=== PATIENT | female | born 1935 | race Two or more races ===

== ENCOUNTER 2024-07-07 06:59 | Inpatient (IN) | payer OTHER ==
[~2024-07-07] VITALS: Ht 152.4 cm; Wt 46.2 kg
[2024-07-07 07:30] VITALS: PULSE 91; RESP 16; O2SAT 95
--- NOTE | 2024-07-07 07:39 | ECG ---
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
--- NOTE | 2024-07-07 09:37 | PRN ---
Misceleneous Note Note Note Rapid screening exam performed 89-year-old female who presents to the emergency department with coffee-ground emesis for the past 2-3 days. She reports lower abdominal pain. She is unsure of blood in the stool. She is not on blood thinners, no history of GI bleed in the past. Blood pressure 137/92 General: Awake, alert and oriented. No acute distress. Skin: Skin in warm, dry and intact without rashes or lesions. HEENT: The head is normocephalic and atraumatic. Conjunctivae are clear without exudates or hemorrhage. Sclera is non-icteric. Neck: Normal range of motion. No JVD. Cardiac: Regular rate Respiratory: No signs of respiratory distress. No Stridor. Extremities: Upper and lower extremities are atraumatic in appearance without tenderness or deformity. Neurological: The patient is awake, alert and oriented to person, place, and time with normal speech. Speech is clear. There is no facial asymmetry. Plan: Labs, Imaging, PPI IV fluid Sign out to LENA Estevez MD Jul 07, 2024 09:37
[2024-07-07 10:00] LABS: Basophils # (auto) 0 10 ^3/uL (0-0.2); Basophils % (auto) 0.3 % (0.0-2.0); Eosinophils # (auto) 0 10 ^3/uL (0-0.8); Eosinophils % (auto) 0.1 % (0.0-7.0); Hematocrit 41.7 % (36.0-46.0); Hemoglobin 14.1 g/dL (12.2-16.2); Lymphocytes # (auto) 0.5 10 ^3/uL (0.4-5.4); Lymphocytes % (auto) 8.5 % (10.0-50.0); Mean Corpuscular Hemoglobin 32.9 pg (28.0-32.0); Mean Corpuscular Hgb Conc. 33.8 g/dL (32.0-36.0); Mean Corpuscular Volume 97.2 fL (80.0-100.0); Monocytes # (auto) 0.4 10 ^3/uL (0-1.3); Monocytes % (auto) 7.1 % (0.0-12.0); Neutrophils # (auto) 5.2 10 ^3/uL (1.6-8.6); Nucleated Red Blood Cells % 0.1 %; Platelet Count (auto) 333 10^3/uL (140-450); Red Blood Cells 4.29 10^6/uL (4.0-5.20); Red Cell Distribution Width 14.4 % (11.8-14.3); White Blood Cell 6.2 10^3/uL (4.4-10.8)
--- NOTE | 2024-07-07 10:15 | ED.PDOC ---
GI ASSESSMENT HPI Comments 89-year-old female brought in by EMS presents with a chief complaint of abdominal pain x onset "days" with associated diarrhea, nausea, and vomiting. Patient is a poor historian. Patient states that she has been having intermittent episodes of diarrhea and vomiting since "Sunday" but states that she is unsure of the day today and does not know exactly how long she has been experiencing the aforementioned symptoms. Patient reports that she has been having diarrhea, but does not know if it was tarry, black or bloody due to "I did not want to look at it". Patient reports that she has been having coffee ground emesis. Patient denies use of blood thinners. 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 Family History Family History: Reviewed,noncontributory to illness Social History Smoker: Non-Smoker Alcohol: Denies ETOH Use Drugs: Denies Drug Use Lives In: Home Constitutional: denies: chills, diaphoresis, fatigue, fever, malaise, sweats, weakness, others EENTM: denies: blurred vision, double vision, ear bleeding, ear discharge, ear drainage, ear pain, ear ringing, eye pain, eye redness, hearing loss, mouth pain, mouth swelling, nasal discharge, nose bleeding, nose congestion, nose pain, photophobia, tearing, throat pain, throat swelling, voice changes, others Respiratory: denies: cough, hemoptysis, orthopnea, SOB at rest, shortness of breath, SOB with excertion, stridor, wheezing, others Cardiovascular: denies: chest pain, dizzy spells, diaphoresis, Dyspnea on exertion, edema, irregular heart beat, left arm pain, lightheadedness, palpitations, PND, syncope, others Gastrointestinal: reports: abdominal pain, diarrhea, nausea, vomiting; denies: abdomen distended, blood streaked bowels, constipated, dysphagia, difficulty swallowing, hematemesis, melena, poor appetite, poor fluid intake, rectal pain, others Genitourinary: denies: abnormal vagina bleeding, burning, dyspareunia, dysuria, flank pain, frequency, hematuria, incontinence, pain, , vagina discharge, urgency, others Neurological: denies: dizziness, fainting, headache, left sided numbness, left sided weakness, numbness, paresthesia, pre-existing deficit, right sided numbness, right sided weakness, seizure, speech problems, tingling, tremors, weakness, others Musculoskeletal: denies: back pain, gout, joint pain, joint swelling, muscle pain, muscle stiffness, neck pain, others Integumetry: denies: bruises, change in color, change in hair/nails, dryness, laceration, lesions, lumps, rash, wounds, others Allergic/Immunocompromised: denies: Difficulty Healing, Frequent Infections, Hives, Itching, others Hematologic/Lymphatic: denies: anemia, blood clots, easy bleeding, easy bruising, swollen glands, others Endocrine: denies: excessive hunger, excessive sweating, excessive thirst, excessive urination, flushing, intolerance to cold, intolerance to heat, unexplained weight gain, unexplained weight loss, others Psychiatric: denies: anxiety, bipolar disorder, depression, hopeless, panic disorder, schizophrenia, sleepless, suicidal, others All Other Systems: Reviewed and Negative Physical Exam General Appearance: No Apparent Distress HEENT: Other (Pupils symmetric, dry mucous membranes, no facial asymmetry) Neck: Full Range of Motion, Normal Inspection Respiratory: Lungs Clear, No Accessory Muscle Use, No Respiratory Distress, Normal Breath Sounds Cardiovascular: No Edema, No JVD, Regular Rate/Rhythm Breast Exam: Deferred Gastrointestinal: LLQ, RLQ, Soft, Tenderness Genitalia: Deferred Pelvic: Deferred Rectal: Deferred Extremities: Normal inspection, Normal range of motion, Non-tender, No pedal edema Neurologic: Alert (Oriented x2), Normal Affect, Normal Mood, Other (Moves all extremities. Follows commands. No gross focal deficit.) Cerebellar Function: NOT DONE Reflexes: NOT DONE Skin: Dry, Normal Color, Warm Lymphatic: NOT DONE Was a procedure done? Was a procedure done?: No GI differential Dx Differential Diagnosis: Diverticular disease, Gastroenteritis, GI hemorrhage, Inflammatory BD, Ischemic Bowel, UTI, Dehydration, Electrolyte Imbalance, Food Poisoning, Bacterial, Parasitic, Viral, Hypovolemia, Malnutrition, Renal Failure, Anemia X-Ray, Labs, Meds, VS Vital Signs Date Time Temp Pulse Resp B/P (MAP) Pulse Ox O2 Delivery O2 Flow Rate FiO2 07/07/24 10:00 90 21 119/59 (79) 92 07/07/24 09:00 84 19 137/72 (93) 93 07/07/24 08:18 93 07/07/24 08:00 85 15 121/71 (88) 94 07/07/24 07:30 91 16 95 Room Air* 0 21 07/07/24 07:30 98.2 91 16 136/80 (98) 95 98.2 07/07/24 07:06 97.7 110 14 142/72 (95) 97 07/07/24 07:02 101 Lab Test 07/07/24 09:40 Range/Units White Blood Count 6.2 4.4-10.8 10^3/uL Red Blood Count 4.29 4.0-5.20 10^6/uL Hemoglobin 14.1 12.2-16.2 g/dL Hematocrit 41.7 36.0-46.0 % Mean Corpuscular Volume 97.2 80.0-100.0 fL Mean Corpuscular Hemoglobin 32.9 H 28.0-32.0 pg Mean Corpuscular Hemoglobin Concent 33.8 32.0-36.0 g/dL Red Cell Distribution Width 14.4 H 11.8-14.3 % Platelet Count 333 140-450 10^3/uL Mean Platelet Volume 7.1 6.9-10.8 fL Neutrophils (%) (Auto) 84.0 H 37.0-80.0 % Lymphocytes (%) (Auto) 8.5 L 10.0-50.0 % Monocytes (%) (Auto) 7.1 0.0-12.0 % Eosinophils (%) (Auto) 0.1 0.0-7.0 % Basophils (%) (Auto) 0.3 0.0-2.0 % Neutrophils # (Auto) 5.2 1.6-8.6 10 ^3/uL Lymphocytes # (Auto) 0.5 0.4-5.4 10 ^3/uL Monocytes # (Auto) 0.4 0-1.3 10 ^3/uL Eosinophils # (Auto) 0 0-0.8 10 ^3/uL Basophils # (Auto) 0 0-0.2 10 ^3/uL Nucleated Red Blood Cells 0.1 % Prothrombin Time Pending Prothrombin Time INR Pending Activated Partial Thromboplast Time Pending Sodium Level 139 136-145 mmol/L Potassium Level 3.2 L 3.5-5.1 mmol/L Chloride Level 101 98-107 mmol/L Carbon Dioxide Level 26 20-31 mmol/L Anion Gap 12 5-15 Blood Urea Nitrogen 8 L 9-23 mg/dL Creatinine 0.65 0.550-1.02 mg/dL Glomerular Filtration Rate Calc 85 >90 mL/min BUN/Creatinine Ratio 12.3 10.0-20.0 Serum Glucose 76 74-106 mg/dL Calcium Level 9.0 8.7-10.4 mg/dL Total Bilirubin 0.3 0.2-1.0 mg/dL Aspartate Amino Transferase (AST) 35 13-40 U/L Alanine Aminotransferase (ALT) 22 7-40 U/L Alkaline Phosphatase 65 46-116 U/L Total Protein 6.6 5.7-8.2 g/dL Albumin 4.0 3.2-4.8 g/dL Current Medications Medications (Trade) Dose Ordered Sig/Jourdan Route Start Time Stop Time Status Last Admin Sodium Chloride 1,000 ml @ 1,000 mls/hr Q1H ONCE IV 07/07/24 09:30 07/07/24 10:29 DC 07/07/24 10:23 Pantoprazole Sodium (Protonix) 40 mg ONCE ONCE IV 07/07/24 09:30 07/07/24 09:31 DC 07/07/24 10:28 Ondansetron HCl (Zofran) 4 mg ONCE ONCE IV 07/07/24 10:15 07/07/24 10:16 DC 07/07/24 10:29 PROCEDURE(s): ABPLIV - CT AB PEL WITH IV CON ONLY REASON: Coffee-ground emesis, abdominal pain, ORDER NUMBER(s): [id number], ACCESSION NUMBER(s): [id number] Exam: CT CT AB PEL WITH IV CON ONLY History: Coffee-ground emesis, abdominal pain, Comparison Study: None available at time of dictation. Technique: Multidetector spiral CT of the abdomen was performed from lung bases to pubic symphysis. Axial imaging was performed with intravenous contrast following the uneventful administration of 100 ml Omnipaque 300. Coronal and sagittal multiplanar reformats were obtained from the axial data set by the technologist. Radiation Dose : 1. Abdomen/Pelvis: CTDIvol 5.1 mGy, DLP 236.7 mGy*cm. Findings: Lung Bases: Lung bases are clear. Visualized portions of the heart and pericardium are unremarkable. Liver: The liver is normal in size. No focal lesions. Gallbladder and Biliary Tree: The gallbladder is unremarkable. No intrahepatic or extrahepatic biliary ductal dilatation. Spleen: Unremarkable Pancreas: The pancreas enhances normally and there are no focal lesions. The main pancreatic duct is not dilated Adrenal Glands: Unremarkable Kidneys: Kidneys enhance symmetrically. No calculi or hydronephrosis. 10 mm cyst in the lower pole of the right kidney. GI tract: The stomach is grossly normal in appearance.. No evidence of small bowel wall thickening or abnormal dilatation to suggest bowel obstruction. Colonic diverticulosis without acute diverticulitis. Peritoneum/mesentery/retroperitoneum. No evidence of free intraperitoneal air. No ascites. No evidence of suspicious lymphadenopathy. Abdominal Wall: Unremarkable. Vasculature: Abdominal aorta and main branches are unremarkable. There are atherosclerotic calcifications in the aorta. Normal vascular enhancement. Urinary Bladder: Grossly unremarkable for degree of distention. Pelvic Organs: Unremarkable Musculoskeletal: No aggressive focal bony lesions, acute fractures or dislocation. Multilevel lumbar spondylosis. IMPRESSION: 1. No acute abdominal or pelvic findings. 2. Sigmoid diverticulosis without acute diverticulitis. X-Ray, Labs, Meds, VS Comment 89-year-old female with unknown past medical history complaining of lower abdominal pain, nausea, hematemesis and diarrhea Vitals remarkable for heart rate 110, BP 142/72 Exam remarkable for lower abdominal tenderness to palpation. No tenderness to percussion. CT abdomen and pelvis: IMPRESSION: 1. No acute abdominal or pelvic findings. 2. Sigmoid diverticulosis without acute diverticulitis. CBC unremarkable, CMP remarkable for potassium 3.2, coag panel pending, UA pending Patient treated with the following in the ED: 1 L 0.9 normal saline IV bolus, Protonix 40 mg IV, effervescent potassium 50 mEq p.o. Patient declined any pain medication in the ED. On re-evaluation, patient was resting comfortably with stable vitals. Plan is to admit the patient for GI evaluation and supportive care. Time of 1ST Reevaluation: 10:40 Reevaluation 1ST: Unchanged Patient Education/Counseling: Diagnosis, Treatment, Prognosis Family Education/Counseling: No Family Present Departure 1 Departure Time of Disposition: 11:04 Impression: Primary Impression: Abdominal pain Qualified Codes: R10.9 - Unspecified abdominal pain Additional Impressions: Hematemesis Qualified Codes: K92.0 - Hematemesis Diarrhea Qualified Codes: R19.7 - Diarrhea, unspecified Disposition: 09 ADMITTED INPATIENT Admit to: Med Surg Condition: Guarded Critical Care Note Critical Care Time?: No Stability Stability form required: No Heart Score Heart Score: Heart Score Response (Comments) Value History N/A 0 EKG N/A 0 Age N/A 0 Risk Factors N/A 0 Troponin N/A 0 Total 0 I personally scribed for JASBIR TIPTON MD ([email or web address]) on 07/07/24 at 10:15. Electronically submitted by Arnold Pickett ([email or web address]). JASBIR TIPTON MD Jul 07, 2024 10:15
[2024-07-07 10:21] LABS: Alanine Aminotransferase 22 U/L (7-40); Alkaline Phosphatase 65 U/L (46-116); Anion Gap 12 (5-15); Aspartate Aminotransferase 35 U/L (13-40); BUN/Creatinine Ratio 12.3 (10.0-20.0); Carbon Dioxide 26 mmol/L (20-31); Chloride 101 mmol/L (98-107); Glucose 76 mg/dL (74-106); Sodium 139 mmol/L (136-145)
[2024-07-07 10:22] LABS: Blood Urea Nitrogen 8 mg/dL (9-23); Potassium 3.2 mmol/L (3.5-5.1); Total Protein 6.6 g/dL (5.7-8.2)
[2024-07-07] MEDS: SODIUM CHLORIDE 0.9% 1,000 ML IV ONE (10:23)
[2024-07-07 10:27] LABS: Bilirubin, Total 0.3 mg/dL (0.2-1.0)
[2024-07-07] MEDS: PANTOPRAZOLE 40 MG/10 ML VIAL INJ IV ONE (10:28)
[2024-07-07] MEDS: ONDANSETRON HCL 4 MG/2 ML VIAL IV ONE (10:29)
--- NOTE | 2024-07-07 10:59 | DVH ---
Exam: CT CT AB PEL WITH IV CON ONLY History: Coffee-ground emesis, abdominal pain, Comparison Study: None available at time of dictation. Technique: Multidetector spiral CT of the abdomen was performed from lung bases to pubic symphysis. Axial imaging was performed with intravenous contrast following the uneventful administration of 100 ml Omnipaque 300. Coronal and sagittal multiplanar reformats were obtained from the axial data set b y the technologist. Radiation Dose : 1. Abdomen/Pelvis: CTDIvol 5.1 mGy, DLP 236.7 mGy*cm. Findings: Lung Bases: Lung bases are clear. Visualized portions of the heart and pericardium are unremarkable. Liver: The liver is normal in size. No focal lesions. Gallbladder and Biliary Tree: The gallbladder is unremarkable. No intrahepatic or extrahepatic bilia ry ductal dilatation. Spleen: Unremarkable Pancreas: The pancreas enhances normally and there are no focal lesions. The main pancreatic duct i s not dilated Adrenal Glands: Unremarkable Kidneys: Kidneys enhance symmetrically. No calculi or hydronephrosis. 10 mm cyst in the lower pole o f the right kidney. GI tract: The stomach is grossly normal in appearance.. No evidence of small bowel wall thickening or abnormal dilatation to suggest bowel obstruction. Colonic diverticulosis without acute diverticuliti s. Peritoneum/mesentery/retroperitoneum. No evidence of free intraperitoneal air. No ascites. No evidenc e of suspicious lymphadenopathy. Abdominal Wall: Unremarkable. Vasculature: Abdominal aorta and main branches are unremarkable. There are atherosclerotic calcificat ions in the aorta. Normal vascular enhancement. Urinary Bladder: Grossly unremarkable for degree of distention. Pelvic Organs: Unremarkable Musculoskeletal: No aggressive focal bony lesions, acute fractures or dislocation. Multilevel lumbar spondylosis. IMPRESSION: 1. No acute abdominal or pelvic findings. 2. Sigmoid diverticulosis without acute diverticulitis.
[2024-07-07 11:59] LABS: INR 1.03 (0.9-1.15); Partial Thromboplastin Time 29.8 SEC (24.5-34.5); Prothrombin Time 10.9 sec (9.3-11.8)
[2024-07-07 12:34] LABS: Urine Bacteria None Seen /hpf (None Seen)
[2024-07-07] MEDS: IOHEXOL 300 MG/ML 100ML BOTTLE IJ ONE (13:04)
[2024-07-07 13:06] LABS: Urine Blood Negative /uL (Negative); Urine Clarity Clear (Clear); Urine Color Light-Yellow (Yellow); Urine Protein, UAD Negative (Negative); Urine Squamous Epithelial Cell FEW /hpf (<5); Urine Urobilinogen Normal (Negative); Urine WBC 5 /hpf (0 - 5); Urine pH 6.5 (5.0-9.0)
[2024-07-07] MEDS: POTASSIUM EFFERVESENT TAB 25 MEQ PO ONE (13:37)
[2024-07-07] MEDS ORDERED: DOCUSATE SOD 100 MG CAP PO PRN (16:00)
[2024-07-07] MEDS ORDERED: ACETAMINOPHEN 325 MG TAB PO PRN (16:00)
[2024-07-07] MEDS ORDERED: ONDANSETRON HCL 4 MG/2 ML VIAL IV PRN (16:00)
[2024-07-07] MEDS ORDERED: HYDROcodone-ACET 5/325MG TAB PO PRN (16:00)
[2024-07-07] MEDS: cefTRIAXone 1GM/50ML D5W 50 ML IV ONE (16:14)
--- NOTE | 2024-07-07 17:14 | DVHHP2 ---
History of Present Illness Reason for Visit: Abdominal pain History of Present Illness Patient is a 89-year-old female with past medical history of hypertension, hyperlipidemia, GERD, and dizziness who presented to [facility] ED with complaint of abdominal pain. Patient reports symptoms progressively get worse with associated intermittent episodes diarrhea, nausea, vomiting, getting worse that prompted this visit. Patient was seen and evaluated in the ED, laboratory data shows WBC 6.2, hemoglobin 14.1, hematocrit 41.7, platelets 333, sodium 139, potassium 3.2, BUN 8, creatinine 0.65, GFR 85, glucose 76, blood pressure 141/58, heart rate 80, temperature 98.2 F, O2 saturation 93% on oxygen, urinalysis positive for urinary tract infection. Abdomen/pelvis CT revealing sigmoid diverticulosis without acute diverticulitis, no acute abdominal or pelvic findings. Patient was started on IV antibiotic regimen Rocephin, please see medication record section in the computer. On my assessment, patient denied chest pain, no headache, no dizziness, no diaphoresis, no abdominal pain, no diarrhea, nausea or vomiting at this moment, no fever, no chills. Patient was admitted for further evaluation and medical ma nagement. Past Medical History HTN, HLD, GERD, dizziness Past Surgical History Unknown Family History Reviewed, noncontributory to the management of this case. Past Social History The patient lives at home, no history of smoking, alcohol or illicit drugs abuse on file. Review of Systems Constitutional: Yes: Weakness; No: Fever, Chills, Sweats, Malaise, Other Eyes: No: Pain, Vision change, Conjunctivae inflammation, Eyelid inflammation, Other, Redness ENT: No: Ear pain, Ear discharge, Nose pain, Nose discharge, Nose congestion, Mouth pain, Mouth swelling, Throat pain, Throat swelling, Other Respiratory: No: Cough, Dry, Shortness of breath, SOB with excertion, Wheezing, Hemoptysis, Pleuritic Pain, Sputum, Wheezing, Other Cardiovascular: No: Chest Pain, Palpitations, Orthopnea, Paroxysmal Noc. Dyspnea, Edema, Lt Headedness, Other Gastrointestinal: Nausea, Vomiting, Abdominal Pain, Diarrhea; No: Constipation, Melena, Hematochezia, Other Genitourinary: No Dysuria, No Frequency, No Incontinence, No Hematuria, No Retention, No Other Musculoskeletal: No: other, neck pain, shoulder pain, arm pain, back pain, hand pain, leg pain, foot pain Skin: No: Rash, Lesions, Jaundice, Bruising, Other Neurological: No: Weakness, Numbness, Incoordination, Change in speech, Confusion, Seizures, Other Allergies: Coded Allergies: UNOBTAINABLE (Unverified , 07/07/24) Medications Current Medications Medications Dose Ordered Sig/Jourdan Route Start Time Stop Time Status Last Admin Dose Admin Ceftriaxone Sodium 50 ml @ 100 mls/hr DAILY@09 IV 07/08/24 09:00 Pantoprazole Sodium 40 mg DAILY IV 07/08/24 10:00 Hydralazine HCl 10 mg Q6HP PRN IV 07/07/24 16:00 Atorvastatin Calcium 10 mg HS PO 07/07/24 22:00 Sodium Chloride 1,000 ml @ 60 mls/hr [id number] IV 07/07/24 16:00 Acetaminophen/ Hydrocodone Bitart 1 tab Q4HP PRN PO 07/07/24 16:00 Ondansetron HCl 4 mg Q4HP PRN IV 07/07/24 16:00 Docusate Sodium 100 mg BIDPRN PRN PO 07/07/24 16:00 Acetaminophen 650 mg Q6HP PRN PO 07/07/24 16:00 Exam Vital Signs Vital Signs Date Time Temp Pulse Resp B/P (MAP) Pulse Ox O2 Delivery O2 Flow Rate FiO2 07/07/24 16:43 70 07/07/24 14:00 21 141/58 (85) 93 07/07/24 07:30 Room Air* 0 21 07/07/24 07:30 98.2 98.2 General Appearance: Alert, Oriented X3, Cooperative, No acute distress HEENT: Atraumatic, PERRLA, EOMI, Mucous membr. moist/pink Respiratory: Clear to auscultation, Normal air movement Cardiovascular: Regular rate, Normal S1, Normal S2, No murmurs Abdominal: Normal bowel sounds, Soft, No hepatospenomegaly, No masses, Other (Reports tenderness) Extremities: No clubbing, No cyanosis, No edema, Normal pulses, No tenderness/swelling Skin: No rashes, No breakdown, No significant lesion Neuro: Normal speech, Normal tone, Sensation intact, Cranial nerves 3-12 NL, Reflexes 2+, Other (Generalized weakness) Psych/Mental Status: Mental status NL, Mood NL Labs/Xrays Labs Test 1/13/25 12:20 07/07/24 09:40 Range/Units Urine Color Light-yellow Yellow Urine Clarity Clear Clear Urine pH 6.5 5.0-9.0 Urine Specific [place] 1.050 H 1.001-1.035 Urine Protein Negative Negative Urine Ketones 1+ H Negative Urine Blood Negative Negative /uL Urine Nitrite Negative Negative Urine Bilirubin Negative Negative Urine Urobilinogen Normal Negative mg/dL Urine Leukocyte Esterase 1+ Negative /uL Urine RBC 1 0 - 4 /hpf Urine WBC 5 0 - 5 /hpf Urine Squamous Epithelial Cells Few <5 /hpf Urine Bacteria None seen None Seen /hpf Urine Glucose Normal Normal mg/dL White Blood Count 6.2 4.4-10.8 10^3/uL Red Blood Count 4.29 4.0-5.20 10^6/uL Hemoglobin 14.1 12.2-16.2 g/dL Hematocrit 41.7 36.0-46.0 % Mean Corpuscular Volume 97.2 80.0-100.0 fL Mean Corpuscular Hemoglobin 32.9 H 28.0-32.0 pg Mean Corpuscular Hemoglobin Concent 33.8 32.0-36.0 g/dL Red Cell Distribution Width 14.4 H 11.8-14.3 % Platelet Count 333 140-450 10^3/uL Mean Platelet Volume 7.1 6.9-10.8 fL Neutrophils (%) (Auto) 84.0 H 37.0-80.0 % Lymphocytes (%) (Auto) 8.5 L 10.0-50.0 % Monocytes (%) (Auto) 7.1 0.0-12.0 % Eosinophils (%) (Auto) 0.1 0.0-7.0 % Basophils (%) (Auto) 0.3 0.0-2.0 % Neutrophils # (Auto) 5.2 1.6-8.6 10 ^3/uL Lymphocytes # (Auto) 0.5 0.4-5.4 10 ^3/uL Monocytes # (Auto) 0.4 0-1.3 10 ^3/uL Eosinophils # (Auto) 0 0-0.8 10 ^3/uL Basophils # (Auto) 0 0-0.2 10 ^3/uL Nucleated Red Blood Cells 0.1 % Prothrombin Time 10.9 9.3-11.8 sec Prothrombin Time INR 1.03 0.9-1.15 Activated Partial Thromboplast Time 29.8 24.5-34.5 SEC Sodium Level 139 136-145 mmol/L Potassium Level 3.2 L 3.5-5.1 mmol/L Chloride Level 101 98-107 mmol/L Carbon Dioxide Level 26 20-31 mmol/L Anion Gap 12 5-15 Blood Urea Nitrogen 8 L 9-23 mg/dL Creatinine 0.65 0.550-1.02 mg/dL Glomerular Filtration Rate Calc 85 >90 mL/min BUN/Creatinine Ratio 12.3 10.0-20.0 Serum Glucose 76 74-106 mg/dL Calcium Level 9.0 8.7-10.4 mg/dL Total Bilirubin 0.3 0.2-1.0 mg/dL Aspartate Amino Transferase (AST) 35 13-40 U/L Alanine Aminotransferase (ALT) 22 7-40 U/L Alkaline Phosphatase 65 46-116 U/L Total Protein 6.6 5.7-8.2 g/dL Albumin 4.0 3.2-4.8 g/dL PATIENT: SORAYA BOYD ACCT: [id number] UNIT: [id number] : 1935 LOC: ER ROOM / BED: / AGE / SEX: 89 / F ADM STATUS: REG ER SERVICE 5 ORDERING PHYSICIAN: LENA LOPEZ MD PROCEDURE(s): ABPLIV - CT AB PEL WITH IV CON ONLY REASON: Coffee-ground emesis, abdominal pain, ORDER NUMBER(s): [id number], ACCESSION NUMBER(s): [id number] Exam: CT CT AB PEL WITH IV CON ONLY History: Coffee-ground emesis, abdominal pain, Comparison Study: None available at time of dictation. Technique: Multidetector spiral CT of the abdomen was performed from lung bases to pubic symphysis. Axial imaging was performed with intravenous contrast following the uneventful administration of 100 ml Omnipaque 300. Coronal and sagittal multiplanar reformats were obtained from the axial data set by the technologist. Radiation Dose : 1. Abdomen/Pelvis: CTDIvol 5.1 mGy, DLP 236.7 mGy*cm. Findings: Lung Bases: Lung bases are clear. Visualized portions of the heart and pericardium are unremarkable. Liver: The liver is normal in size. No focal lesions. Gallbladder and Biliary Tree: The gallbladder is unremarkable. No intrahepatic or extrahepatic biliary ductal dilatation. Spleen: Unremarkable Pancreas: The pancreas enhances normally and there are no focal lesions. The main pancreatic duct is not dilated Adrenal Glands: Unremarkable Kidneys: Kidneys enhance symmetrically. No calculi or hydronephrosis. 10 mm cyst in the lower pole of the right kidney. GI tract: The stomach is grossly normal in appearance.. No evidence of small bowel wall thickening or abnormal dilatation to suggest bowel obstruction. Colonic diverticulosis without acute diverticulitis. Peritoneum/mesentery/retroperitoneum. No evidence of free intraperitoneal air. No ascites. No evidence of suspicious lymphadenopathy. Abdominal Wall: Unremarkable. Vasculature: Abdominal aorta and main branches are unremarkable. There are atherosclerotic calcifications in the aorta. Normal vascular enhancement. Urinary Bladder: Grossly unremarkable for degree of distention. Pelvic Organs: Unremarkable Musculoskeletal: No aggressive focal bony lesions, acute fractures or dislocation. Multilevel lumbar spondylosis. IMPRESSION: 1. No acute abdominal or pelvic findings. 2. Sigmoid diverticulosis without acute diverticulitis. Assessment/Plan Assessment/Plan Abdominal pain Hypokalemia Unspecified abdominal pain Hematemesis Diarrhea, unspecified Generalized weakness Plan 1. Admit to Med-Surg unit 2. Breathing treatment 3. Pain control management 4. Management of fluids and electrolytes 5. Consultation for hospitalist 6. Diagnostic tests abdomen/pelvis CT 7. DVT prophylaxis-on SCDs 8. Repeat labs CBC, CMP in a.m. 9. Continue with current medical management 10. Treatment plan discussed with patient and RN. Patient verbalized understanding. Plan discussed with: Patient, Other (RN) My Orders Orders - GAUTAM TOVAR DNP Procedure Category Date Status Time Urine Bacterial NAHEED 07/07/24 Logged Culture 15:48 Ceftriaxone 1gm/50ml PHA 07/08/24 In Process D5w (Rocephin) 09:00 Pantoprazole PHA 07/08/24 In Process (Protonix) 10:00 Hydralazine Injection PHA 07/07/24 In Process (Apresoline Inject 16:00 Atorvastatin (Lipitor) PHA 07/07/24 In Process 22:00 Allergies ANANYA 07/07/24 In Process 15:48 Code Status CODE 07/07/24 Transmitted 15:48 Sodium Chloride 0.9% PHA 07/07/24 In Process 16:00 Oxygen Per Hour RT 07/07/24 Transmitted 15:48 Hydrocodone-Acet PHA 07/07/24 In Process 5/325mg Tab ([place] 16:00 Ondansetron Hcl PHA 07/07/24 In Process (Zofran) 16:00 Docusate Sodium PHA 07/07/24 In Process Capsule (Colace 16:00 Fall Risk Precautions ANANYA 07/07/[address] 15:48 Complete Blood Count LAB 07/08/24 Verified 04:00 Comprehensive LAB 07/08/24 Verified Metabolic Panel 04:00 Cardiac DIET 07/07/24 Transmitted Diet-2gna,Lofat,Lochol Dinner Condition: Serious ANANYA 07/07/24 In Process 15:48 Acetaminophen Tablet PHA 07/07/24 In Process (Tylenol Tablet) 16:00 Sequential ANANYA 07/07/24 In Process Compression Device Problem List: (1) Abdominal pain (2) Diarrhea, unspecified (3) Hematemesis (4) Hypokalemia (5) Unspecified abdominal pain (6) Generalized weakness Date of Service: Jul 07, 2024 Billing Provider: GAUTAM TOVAR DNP Common Visit Codes: [id number] INP/OBS CARE (HIGH) GAUTAM TOVAR DNP Jul 07, 2024 17:14
[2024-07-07] MEDS ORDERED: MORPHINE SULFATE INJ 2 MG/ml SYRG IV PRN (17:15)
[2024-07-07] MEDS ORDERED: NITROGLYCERIN 0.4 MG SL TAB SL PRN (17:15)
[2024-07-07] MEDS: SODIUM CHLORIDE 0.9% 1,000 ML IV SCH (17:15)
[2024-07-07 18:00] VITALS: PULSE 80; RESP 11; O2SAT 91
[2024-07-07 19:43] VITALS: PULSE 76; RESP 11; O2SAT 91
[2024-07-07 21:45] VITALS: BP 148/85; PULSE 79; RESP 18; TEMP 98; O2SAT 90
[2024-07-07 21:58] VITALS: BP 148/85; PULSE 79; RESP 18; TEMP 98; O2SAT 90
[2024-07-07] MEDS ORDERED: MECL-126 PO (22:03)
[2024-07-07] MEDS ORDERED: MELO7.5T7 PO (22:03)
[2024-07-07] MEDS ORDERED: AMLO1TAB21 PO (22:03)
[2024-07-07] MEDS ORDERED: FLUT1AER12 INH (22:03)
[2024-07-07] MEDS ORDERED: TRAZ-227 PO (22:03)
[2024-07-07] MEDS ORDERED: ATOR10TA52 PO (22:03)
[2024-07-07] MEDS: ATORVASTATIN 20 MG TAB PO SCH (22:35)
[2024-07-08] VITALS (7 sets, daily range): BP systolic 106–156; BP diastolic 51–85; PULSE 54–80; RESP 15–18; TEMP 97.5–98.6; O2SAT 90–95
[2024-07-08 06:30] LABS: Basophils # (auto) 0 10 ^3/uL (0-0.2); Basophils % (auto) 0.4 % (0.0-2.0); Eosinophils # (auto) 0 10 ^3/uL (0-0.8); Eosinophils % (auto) 0.4 % (0.0-7.0); Hematocrit 41.1 % (36.0-46.0); Hemoglobin 14.2 g/dL (12.2-16.2); Lymphocytes # (auto) 1.1 10 ^3/uL (0.4-5.4); Lymphocytes % (auto) 20.1 % (10.0-50.0); Mean Corpuscular Hemoglobin 33.3 pg (28.0-32.0); Mean Corpuscular Hgb Conc. 34.5 g/dL (32.0-36.0); Mean Corpuscular Volume 96.5 fL (80.0-100.0); Monocytes # (auto) 0.4 10 ^3/uL (0-1.3); Monocytes % (auto) 8.3 % (0.0-12.0); Neutrophils # (auto) 3.7 10 ^3/uL (1.6-8.6); Neutrophils % (auto) 70.8 % (37.0-80.0); Nucleated Red Blood Cells % 0.2 %; Platelet Count (auto) 329 10^3/uL (140-450); Red Blood Cells 4.26 10^6/uL (4.0-5.20); Red Cell Distribution Width 14.2 % (11.8-14.3); White Blood Cell 5.2 10^3/uL (4.4-10.8)
[2024-07-08 07:04] LABS: Alanine Aminotransferase 17 U/L (7-40); Alkaline Phosphatase 64 U/L (46-116); Anion Gap 11 (5-15); Aspartate Aminotransferase 25 U/L (13-40); BUN/Creatinine Ratio 10.3 (10.0-20.0); Calcium 8.8 mg/dL (8.7-10.4); Carbon Dioxide 27 mmol/L (20-31); Chloride 99 mmol/L (98-107); Sodium 137 mmol/L (136-145)
[2024-07-08 07:05] LABS: Bilirubin, Total 0.3 mg/dL (0.2-1.0); Total Protein 6.5 g/dL (5.7-8.2)
[2024-07-08 07:15] LABS: Blood Urea Nitrogen 6 mg/dL (9-23); Glucose 64 mg/dL (74-106); Potassium 3.2 mmol/L (3.5-5.1)
[2024-07-08] MEDS: cefTRIAXone 1GM/50ML D5W 50 ML IV SCH (09:38)
[2024-07-08] MEDS: PANTOPRAZOLE 40 MG/10 ML VIAL INJ IV SCH ×2 (09:39→22:20)
--- NOTE | 2024-07-08 09:54 | DVHPN2 ---
Progress Note Date Seen: Jul 08, 2024 Medical Necessity Reason Pt with a Central, PICC or Fol: No Subjective Patient reports: No new complaints Review of Systems: HEENT:Normal, CVS:Normal, RESPIRATORY:Normal, GI:Normal, :Normal, MSK:Normal, NEURO:Normal Objective vital signs Vital Sign Date Time Temp Pulse Resp B/P (MAP) Pulse Ox O2 Delivery O2 Flow Rate FiO2 07/08/24 05:00 98.4 80 17 132/72 (92) 92 98.4 07/07/24 21:58 Room Air* 0 21 Total Intake and Output 07/07/24 07/07/24 07/08/24 15:00 23:00 07:00 Intake Total 1000 ml 290 ml 350 ml Balance 1000 ml 290 ml 350 ml medications Current Medications Medications Dose Ordered Sig/Jourdan Route Start Time Stop Time Status Last Admin Dose Admin Ceftriaxone Sodium 50 ml @ 100 mls/hr DAILY@09 IV 07/08/24 09:00 07/08/24 09:38 100 MLS/HR Pantoprazole Sodium 40 mg DAILY IV 07/08/24 10:00 07/08/24 09:39 40 MG Hydralazine HCl 10 mg Q6HP PRN IV 07/07/24 16:00 Atorvastatin Calcium 10 mg HS PO 07/07/24 22:00 07/07/24 22:35 10 MG Sodium Chloride 1,000 ml @ 60 mls/hr [id number] IV 07/07/24 16:00 07/07/24 17:15 60 MLS/HR Acetaminophen/ Hydrocodone Bitart 1 tab Q4HP PRN PO 07/07/24 16:00 Ondansetron HCl 4 mg Q4HP PRN IV 07/07/24 16:00 Docusate Sodium 100 mg BIDPRN PRN PO 07/07/24 16:00 Acetaminophen 650 mg Q6HP PRN PO 07/07/24 16:00 Nitroglycerin 0.4 mg Q5MINP PRN SL 07/07/24 17:15 Morphine Sulfate 2 mg Q30M PRN IV 07/07/24 17:15 Examination: GENERAL:Normal, HEENT:Normal, NECK:Normal, LUNGS:Normal, CVS:Normal, ABDOMEN:Normal, MSK:Normal, SKIN:Normal, NEURO:Normal, :Normal laboratory and microbiology Laboratory Tests 07/08/24 05:45 Test 1/14/25 05:45 Range/Units Serum Glucose 64 L 74-106 mg/dL Problem List/Assessment/Plan Problem List/Assessment/Plan #1 abd pain with coffee ground emesis: gi eval, ppi #2 htn #3 hyperlipidemia #4 gerd advance care planning- full code- time spent 19 mins Plan discussed with: Patient Date of Service: Jul 08, 2024 Billing Provider: BELÉN WALSH MD Common Visit Codes: [id number] INP/OBS CARE(HIGH) Secondary Visit Codes: [id number] CARE PLAN 30 MINUTES BELÉN WALSH MD Jul 08, 2024 09:54
[2024-07-08] MEDS: POTASSIUM CHLORIDE 20 MEQ, LIDOCAINE 1% (LOCAL ANESTH.) 2 ML in SODIUM CHL 0.9% 100 ML IV ONE (12:23)
--- NOTE | 2024-07-08 15:54 | DVHCONRES ---
Date Seen: Jul 08, 2024 Resident Creating Document: ADOLPH FUCHS RESIDENT Referring Physician Dr. Isidro Sifuentes Reason for Consultation GI bleed History of Present Illness 89-year-old female patient with past medical history of hypertension, hyperlipidemia, GERD, dizziness who was brought to the emergency department with a chief complaint of coffee-ground emesis for the past 24 hours before admission associated with abdominal pain and diarrhea for the past [address] abdomen showed sigmoid diverticulosis without the colitis and urinalysis was positive for urinary tract infection for which the patient was started on IV antibiotics Rocephin. Patient was evaluated at bedside, she denies nausea or vomiting episodes today (07/08/2024) she denies being using NSAIDs or aspirin at home she just uses Tylenol for pain control. The last colonoscopy was more than 30 years ago and she refuses to get a new one again. Patient is hemodynamically stable, we discussed the possibility to proceed with the endoscopic tomorrow at 1:00 p.m., patient agreed with the plan. We are going to advance the diet, clear liquid diet on breakfast and NPO since then until EGD. Past Medical History Hypertension Hyperlipidemia GERD Dizziness Diverticulosis Family History: FH: SD (myocardial infarction) G8 FATHER FH: breast cancer G8 MOTHER Allergies: Coded Allergies: UNOBTAINABLE (Unverified , 07/07/24) Home Meds Reported Medications Trazodone Hcl (Trazodone Hcl) 50 Mg Tab, 1 TAB PO for insomnia 07/07/24 Fluticasone-Salmeterol (Fluticasone Propionate/SA 250-50 Mcg/Dose) 1 Aer Aer, 1 PUFF INH BID 07/07/24 Meloxicam (Meloxicam) 7.5 Mg Tab, 1 TAB PO DAILY 07/07/24 Meclizine HCl (Meclizine Hydrochloride) 25 Mg Tab, 1 TAB PO BIDPRN 07/07/24 Amlodipine Besylate (Amlodipine Besylate) 2.5 Mg Tab, 1 TAB PO DAILY 07/07/24 Atorvastatin Calcium (ATORVASTATIN CALCIUM) 10 Mg Tab, 1 TAB PO DAILY 07/07/24 Current Medications Current Medications Medications (Trade) Dose Ordered Sig/Jourdan Route PRN Reason Start Time Stop Time Status Last Admin Ceftriaxone Sodium 50 ml @ 100 mls/hr DAILY@09 IV 07/08/24 09:00 07/08/24 09:38 Pantoprazole Sodium (Protonix) 40 mg DAILY IV 07/08/24 10:00 07/08/24 14:57 DC 07/08/24 09:39 Hydralazine HCl (Apresoline Injection) 10 mg Q6HP PRN IV SBP>150 07/07/24 16:00 Atorvastatin Calcium (Lipitor) 10 mg HS PO 07/07/24 22:00 07/08/24 09:53 DC 07/07/24 22:35 Sodium Chloride 1,000 ml @ 60 mls/hr [id number] IV 07/07/24 16:00 07/07/24 17:15 Acetaminophen/ Hydrocodone Bitart ([place] 5/325MG Tab) 1 tab Q4HP PRN PO MODERATE PAIN (4-6 PAIN SCALE) 07/07/24 16:00 Ondansetron HCl (Zofran) 4 mg Q4HP PRN IV NAUSEA / VOMITING 07/07/24 16:00 Docusate Sodium (Colace Capsule) 100 mg BIDPRN PRN PO FOR CONSTIPATION 07/07/24 16:00 Acetaminophen (Tylenol Tablet) 650 mg Q6HP PRN PO PAIN SCALE 1-3 OR TEMP>100.4 07/07/24 16:00 Nitroglycerin (Ntrostat Sublingual) 0.4 mg Q5MINP PRN SL FOR CHEST PAIN 07/07/24 17:15 Morphine Sulfate 2 mg Q30M PRN IV FOR CHEST PAIN 07/07/24 17:15 Pantoprazole Sodium (Protonix) 40 mg BID IV 07/08/24 22:00 Sucralfate (Carafate Susp) 1 gm BID@0600,2200 PO 07/08/24 22:00 Review of Systems Constitutional: No: Fever, Chills, Sweats, Weakness, Malaise, Other Eyes: No: Pain, Vision change, Conjunctivae inflammation, Eyelid inflammation, Other, Redness ENT: No: Ear pain, Ear discharge, Nose pain, Nose discharge, Nose congestion, Mouth pain, Mouth swelling, Throat pain, Throat swelling, Other Respiratory: No Wheezing, Hemoptysis, Pleuritic Pain, Sputum, Wheezing, Other Cardiovascular: No: Chest Pain, Palpitations, Orthopnea, Paroxysmal Noc. Dyspnea, Edema, Lt Headedness, Other Gastrointestinal: Yes: Mild abdominal pain No: Nausea, Vomiting, Diarrhea, Constipation, Melena, Hematochezia, Other Musculoskeletal: No: other, neck pain, shoulder pain, arm pain, back pain, hand pain, leg pain, foot pain Neurological:; yes: Weakness No:Numbness, Incoordination, Change in speech, Confusion, Seizures Vital Signs Vital Signs Date Time Temp Pulse Resp B/P (MAP) Pulse Ox O2 Delivery O2 Flow Rate FiO2 07/08/24 08:30 97.9 60 17 147/83 (104) 94 97.9 07/08/24 08:10 Room Air* 0 21 Physical Exam Examination General Appearance: Alert, Oriented X3, Cooperative, No acute distress Respiratory: Clear to auscultation, Normal air movement Cardiovascular: Regular rate, Normal S1, Normal S2 Abdominal: Normal bowel sounds Extremities: No cyanosis, No edema, Normal pulses, No tenderness/swelling Skin: No rashes, No breakdown Neuro: Normal speech, Strength at 5/5 X4 ext, Normal tone, Sensation intact Psych/Mental Status: Mental status NL, Mood NL Labs/Diagnostic Data Labs Test 07/08/24 05:45 07/07/24 12:20 07/07/24 09:40 Range/Units White Blood Count 5.2 4.4-10.8 10^3/uL Red Blood Count 4.26 4.0-5.20 10^6/uL Hemoglobin 14.2 12.2-16.2 g/dL Hematocrit 41.1 36.0-46.0 % Mean Corpuscular Volume 96.5 80.0-100.0 fL Mean Corpuscular Hemoglobin 33.3 H 28.0-32.0 pg Mean Corpuscular Hemoglobin Concent 34.5 32.0-36.0 g/dL Red Cell Distribution Width 14.2 11.8-14.3 % Platelet Count 329 140-450 10^3/uL Mean Platelet Volume 7.1 6.9-10.8 fL Neutrophils (%) (Auto) 70.8 37.0-80.0 % Lymphocytes (%) (Auto) 20.1 10.0-50.0 % Monocytes (%) (Auto) 8.3 0.0-12.0 % Eosinophils (%) (Auto) 0.4 0.0-7.0 % Basophils (%) (Auto) 0.4 0.0-2.0 % Neutrophils # (Auto) 3.7 1.6-8.6 10 ^3/uL Lymphocytes # (Auto) 1.1 0.4-5.4 10 ^3/uL Monocytes # (Auto) 0.4 0-1.3 10 ^3/uL Eosinophils # (Auto) 0 0-0.8 10 ^3/uL Basophils # (Auto) 0 0-0.2 10 ^3/uL Nucleated Red Blood Cells 0.2 % Sodium Level 137 136-145 mmol/L Potassium Level 3.2 L 3.5-5.1 mmol/L Chloride Level 99 98-107 mmol/L Carbon Dioxide Level 27 20-31 mmol/L Anion Gap 11 5-15 Blood Urea Nitrogen 6 L 9-23 mg/dL Creatinine 0.58 0.550-1.02 mg/dL Glomerular Filtration Rate Calc 88 >90 mL/min BUN/Creatinine Ratio 10.3 10.0-20.0 Serum Glucose 64 L 74-106 mg/dL Calcium Level 8.8 8.7-10.4 mg/dL Total Bilirubin 0.3 0.2-1.0 mg/dL Aspartate Amino Transferase (AST) 25 13-40 U/L Alanine Aminotransferase (ALT) 17 7-40 U/L Alkaline Phosphatase 64 46-116 U/L Total Protein 6.5 5.7-8.2 g/dL Albumin 4.0 3.2-4.8 g/dL Urine Color Light-yellow Yellow Urine Clarity Clear Clear Urine pH 6.5 5.0-9.0 Urine Specific [place] 1.050 H 1.001-1.035 Urine Protein Negative Negative Urine Ketones 1+ H Negative Urine Blood Negative Negative /uL Urine Nitrite Negative Negative Urine Bilirubin Negative Negative Urine Urobilinogen Normal Negative mg/dL Urine Leukocyte Esterase 1+ Negative /uL Urine RBC 1 0 - 4 /hpf Urine WBC 5 0 - 5 /hpf Urine Squamous Epithelial Cells Few <5 /hpf Urine Bacteria None seen None Seen /hpf Urine Glucose Normal Normal mg/dL Prothrombin Time 10.9 9.3-11.8 sec Prothrombin Time INR 1.03 0.9-1.15 Activated Partial Thromboplast Time 29.8 24.5-34.5 SEC Assessment Upper GI bleed Sigmoid diverticulosis without signs of diverticulitis Hypertension Hyperlipidemia GERD Hypokalemia Plan/Recommendation EGD scheduled for tomorrow at 1:00 p.m. to evaluate for source of bleeding. Continue Protonix 40 mg IV b.i.d. for gastric protection Liquid Carafate b.i.d. NPO after breakfast Replace potassium as needed Plan discussed with: Patient, Son JOHN DeanaADOLPH RESIDENT Jul 08, 2024 15:54
[2024-07-08] MEDS: hydrALAZINE HCL 20 MG/ML VL IV PRN (17:12)
[2024-07-08] MEDS: SUCRALFATE 1 GM/10 ML ORAL SUSP PO SCH (22:19)
[2024-07-09 01:00] VITALS: BP 152/78; PULSE 60; RESP 18; TEMP 97.5; O2SAT 93
[2024-07-09 05:00] VITALS: BP 155/68; PULSE 79; RESP 18; TEMP 97.7; O2SAT 94
[2024-07-09] MEDS ORDERED: fentaNYL CITRATE 100 MCG/2 ML VL ONE (07:50)
[2024-07-09] MEDS ORDERED: MIDAZOLAM HCL 2MG/2ML 2ml VIAL (1mg/ml) ONE (07:50)
[2024-07-09] MEDS ORDERED: PROPOFOL 10 MG/ML 20 ML IV ONE (07:51)
[2024-07-09] MEDS ORDERED: DexAMETHasone SOD PHOS 10MG/1ML VIAL INJ ONE (07:51)
[2024-07-09] MEDS ORDERED: GLYCOPYRROLATE 0.2 MG/ML 1ML VIAL ONE (07:51)
[2024-07-09] MEDS ORDERED: ONDANSETRON HCL 4 MG/2 ML VIAL ONE (07:51)
[2024-07-09 08:07] VITALS: TEMP 97.3; O2SAT 100
[2024-07-09 08:10] VITALS: PULSE 96; O2SAT 92
--- NOTE | 2024-07-09 08:12 | DVHOP2 ---
Operative Report DATE OF OPERATION: 07/09/24 PROCEDURE: Upper Endoscopy with biopsy. PREOPERATIVE INDICATION: The patient is a 89 -year-old female undergoing endoscopy for history of coffee-ground emesis POSTOPERATIVE DIAGNOSES: 1. 2 cm sliding-type hiatal hernia with slightly irregular squamocolumnar junction and grade a erosive esophagitis 2. Mild gastroduodenitis otherwise normal examination up to the 2nd and 3rd part of the duodenal with no active bleeding PROCEDURE PERFORMED BY: Cecilia Davis GI NURSE: Roman SCOPE: Olympus videoendoscope. ASA CLASS: 2. PREOPERATIVE MEDICATIONS: Mac sedation, Dr. Alfredo PROCEDURE IN DETAIL: After obtaining an informed consent, the patient was placed on left lateral decubitus position. The patient was then sedated with the above medications. A bite block was placed between her teeth. The endoscope was then passed through the oropharynx, into the esophagus, and through the stomach and pylorus up to the second and third part of the duodenum. The endoscope was then withdrawn. The 2nd and 3rd part of the duodenal were normal. Duodenal bulb showed mild duodenitis. Duodenal biopsies were obtained. The pre-pyloric area and antrum showed mild antral gastritis. Gastric biopsies were obtained. There was no fresh or old blood in the upper GI tract. On retroflexion and straight on view the fundus cardia and angularis were normal. The endoscope was then withdrawn into the distal esophagus. Patient had a 2 cm sliding-type hiatal hernia with irregular squamocolumnar junction and grade a erosive esophagitis of the GE junction GE junction biopsies were obtained The remaining distal and proximal esophagus and oropharynx were unremarkable except for tertiary contractions The patient tolerated the procedure well without difficulty. COMPLICATIONS : None SPECIMENS: Duodenal biopsies Gastric biopsies GE junction biopsies DISPOSITION: Transfer back to the floor Stable PLAN: 1. Await for biopsy result 2. Will place pt on Protonix 40 mg p.o. q.a.m. 3. Carafate 1 g p.o. q.h.s. 4. Resume GI soft diet advance as tolerated 5. Avoid aspirin NSAIDs smoking alcohol 6. Patient is stable for discharge from a GI point of view, she was encouraged to follow up in my office as an outpatient CECILIA DAVIS MD Jul 09, 2024 08:12
[2024-07-09 08:37] VITALS: PULSE 88; RESP 15; O2SAT 96
[2024-07-09] MEDS ORDERED: POTASSIUM CHL 20MEQ/100ML 100 ML IV ONE (09:15)
[2024-07-09] MEDS ORDERED: SUCR1TAB31 OR (09:19)
[2024-07-09] MEDS ORDERED: GENT0.3S10 EACHEYE (09:19)
[2024-07-09] MEDS ORDERED: PANT40TA2 PO (09:19)
--- NOTE | 2024-07-09 09:25 | DVHDS2 ---
Discharge Summary Date of Admission Jul 07, 2024 at 17:13 Date of Discharge: Jul 09, 2024 Labs/Diagnostic Data: Laboratory Results Test 07/08/24 05:45 07/07/24 12:20 07/07/24 09:40 White Blood Count 5.2 10^3/uL (4.4-10.8) Red Blood Count 4.26 10^6/uL (4.0-5.20) Hemoglobin 14.2 g/dL (12.2-16.2) Hematocrit 41.1 % (36.0-46.0) Mean Corpuscular Volume 96.5 fL (80.0-100.0) Mean Corpuscular Hemoglobin 33.3 pg (28.0-32.0) Mean Corpuscular Hemoglobin Concent 34.5 g/dL (32.0-36.0) Red Cell Distribution Width 14.2 % (11.8-14.3) Platelet Count 329 10^3/uL (140-450) Mean Platelet Volume 7.1 fL (6.9-10.8) Neutrophils (%) (Auto) 70.8 % (37.0-80.0) Lymphocytes (%) (Auto) 20.1 % (10.0-50.0) Monocytes (%) (Auto) 8.3 % (0.0-12.0) Eosinophils (%) (Auto) 0.4 % (0.0-7.0) Basophils (%) (Auto) 0.4 % (0.0-2.0) Neutrophils # (Auto) 3.7 10 ^3/uL (1.6-8.6) Lymphocytes # (Auto) 1.1 10 ^3/uL (0.4-5.4) Monocytes # (Auto) 0.4 10 ^3/uL (0-1.3) Eosinophils # (Auto) 0 10 ^3/uL (0-0.8) Basophils # (Auto) 0 10 ^3/uL (0-0.2) Nucleated Red Blood Cells 0.2 % Sodium Level 137 mmol/L (136-145) Potassium Level 3.2 mmol/L (3.5-5.1) Chloride Level 99 mmol/L (98-107) Carbon Dioxide Level 27 mmol/L (20-31) Anion Gap 11 (5-15) Blood Urea Nitrogen 6 mg/dL (9-23) Creatinine 0.58 mg/dL (0.550-1.02) Glomerular Filtration Rate Calc 88 mL/min (>90) BUN/Creatinine Ratio 10.3 (10.0-20.0) Serum Glucose 64 mg/dL (74-106) Calcium Level 8.8 mg/dL (8.7-10.4) Total Bilirubin 0.3 mg/dL (0.2-1.0) Aspartate Amino Transferase (AST) 25 U/L (13-40) Alanine Aminotransferase (ALT) 17 U/L (7-40) Alkaline Phosphatase 64 U/L (46-116) Total Protein 6.5 g/dL (5.7-8.2) Albumin 4.0 g/dL (3.2-4.8) Urine Color Light-yellow (Yellow) Urine Clarity Clear (Clear) Urine pH 6.5 (5.0-9.0) Urine Specific [place] 1.050 (1.001-1.035) Urine Protein Negative (Negative) Urine Ketones 1+ (Negative) Urine Blood Negative /uL (Negative) Urine Nitrite Negative (Negative) Urine Bilirubin Negative (Negative) Urine Urobilinogen Normal mg/dL (Negative) Urine Leukocyte Esterase 1+ /uL (Negative) Urine RBC 1 /hpf (0 - 4) Urine WBC 5 /hpf (0 - 5) Urine Squamous Epithelial Cells Few /hpf (<5) Urine Bacteria None seen /hpf (None Seen) Urine Glucose Normal mg/dL (Normal) Prothrombin Time 10.9 sec (9.3-11.8) Prothrombin Time INR 1.03 (0.9-1.15) Activated Partial Thromboplast Time 29.8 SEC (24.5-34.5) Other Laboratory Tests 07/08/24 05:45 Brief Hx & Hospital Course: 89-year-old female was admitted for nausea and vomiting and diarrhea and hematemesis EGD showed 2 cm sliding type hiatal hernia and erosive esophagitis and mild gastro duodenitis Patient takes meloxicam at home Her hemoglobin remained stable Potassium was low which was replaced She is ready to go home She is also complaining of left eye congestion and tearing and blurred vision for 2 days Final diagnoses: Upper GI bleed due to NSAIDs GERD Hypokalemia Left eye conjunctivitis Hypertension Dyslipidemia She will be taking Protonix 40 mg daily and Carafate 1 g at bedtime Also gentamicin eye drops for 5 days Condition at Discharge: Stable Final Diagnosis/Problems List Upper GI bleed due to NSAIDs GERD Hypokalemia Left eye conjunctivitis Hypertension Dyslipidemia Discharge Disposition: Home SNF Discharge Will this Physician continue t: No Discharge Instruct/Medications Diet: Cardiac 2g Na,low cholest Activity: Light activity Follow Up/Referral: PCP KITTY Medications: Stop Meloxicam Protonix 40 mg qd Carafate 1 gm qhs Gentamycin ophth bassem Resume other home meds Discharge Statement: "Patient was advised to return to the ER or call 911 if any headaches, dizziness, shortness of breath, chest pain, abdominal pain, bleeding, fevers, or worsening of medical condition. Patient was counseled about treatment plan, medications, possible side effects, patientverbalized understanding. All questions were answered to the best of my ability. This discharge took greater then 30 minutes in planning, reviewing documentation, counseling the patient, and discussing with other team members." ASSESSMENT ASSESSMENT Assessment Upper GI bleed L conjunctivitis Date of Service: Jul 09, 2024 Billing Provider: MARK HANSON MD Common Visit Codes: NOT BILLABLE MARK HANSON MD Jul 09, 2024 09:25
[2024-07-09 12:05] VITALS: BP 156/84
[2024-07-09] MEDS: POTASSIUM EFFERVESENT TAB 25 MEQ PO ONE (12:46)
== END 2024-07-09 13:20 | disposition home or self-care (01) | DRG 381 ==
LOC: ER 06:59 → EDBD 06:59 → OVERFLOW 17:13 → CENTRAL 21:45
PROVIDERS: ADMIT Internal Medicine Geriatric Medicine; ATTEND Internal Medicine Geriatric Medicine
PROC: 0DB68ZX Excision of Stomach, Via Natural or Artificial Opening Endoscopic, Diagnostic (ICD-10-PCS; 2024-07-09)
PROC: 0DB48ZX Excision of Esophagogastric Junction, Via Natural or Artificial Opening Endoscopic, Diagnostic (ICD-10-PCS; 2024-07-09)
PROC: 0DB98ZX Excision of Duodenum, Via Natural or Artificial Opening Endoscopic, Diagnostic (ICD-10-PCS; principal; 2024-07-09 07:50)
DX: K22.11 Ulcer of esophagus with bleeding (principal); N30.01 Acute cystitis with hematuria; K29.71 Gastritis, unspecified, with bleeding; K29.81 Duodenitis with bleeding; K29.91 Gastroduodenitis, unspecified, with bleeding; E87.6 Hypokalemia; I10 Essential (primary) hypertension; K57.30 Diverticulosis of large intestine without perforation or abscess without bleeding; K21.9 Gastro-esophageal reflux disease without esophagitis; E78.5 Hyperlipidemia, unspecified; T39.395A Adverse effect of other nonsteroidal anti-inflammatory drugs [NSAID], initial encounter; K44.9 Diaphragmatic hernia without obstruction or gangrene; H10.89 Other conjunctivitis; Z79.899 Other long term (current) drug therapy; Z80.3 Family history of malignant neoplasm of breast; Y92.89 Other specified places as the place of occurrence of the external cause
CPT/HCPCS: 36415; 74177; 80053; 81001; 85025; 85610; 85730; 86850; 86900; 86901; 93005; G0378; J1100; J2003; J2250; J2405; J2470; J2704